=== PATIENT | female | born 1970 | race African-American/Black ===

== ENCOUNTER 2017-08-21 14:29 | Observation (INO) | payer OTHER ==
[2017-08-21] MEDS ORDERED: NITROGLYCERIN 0.4 MG/TAB SL ONE (14:55)
[2017-08-21 15:09] LABS: Absolute Lymphocytes (CBC) 2.7 K/uL (0.7-4.9); Absolute Monocytes 0.5 K/uL (0.1-1.3); Absolute Neutrophil 3.6 K/uL (1.8-8.0); Basophils % 0.5 % (0-1.3); Eosinophils % 1.2 % (0-4.4); Hematocrit 38.8 % (36.0-45.0); Lymphocytes % 39.3 % (15.3-44.8); MCH 33.8 pg (27.0-35.0); MCV 100.3 fL (80-100); MPV 7.9 fL (7.6-11.3); Monocytes % 7.1 % (3.3-12.3); RBC Red Blood Cell Count 3.87 M/uL (3.86-4.86)
[2017-08-21 15:19] LABS: Potassium 3.8 mEq/L (3.6-5.0)
[2017-08-21 15:25] LABS: Bilirubin Direct 0.1 mg/dL (0-0.2); Bilirubin Total 0.4 mg/dL (0.3-1.2); Magnesium 1.9 mg/dL (1.8-2.5); Protein, Total 7.2 g/dL (6.0-8.3); Protime INR 0.99
--- NOTE | 2017-08-21 15:28 | RAD REPORT ---
EXAM DESCRIPTION: RAD - Chest Single View - 08/21/2017 3:13 pm CLINICAL HISTORY: Chest pain. COMPARISON: None. FINDINGS: Portable technique limits examination quality. The lungs are grossly clear. The heart is normal in size. No displaced fractures. IMPRESSION: No acute intrathoracic process suspected.
--- NOTE | 2017-08-21 16:51 | ER ---
Nurse's Notes [facility] Name: Nirmala Ma Age: 47 yrs Sex: Female : 1970 Arrival Date: 08/21/2017 Time: 14:31 Bed 4 Private MD: Diagnosis: Chest pain, unspecified;Hypertensive Emergency Presentation: 08/21 14:27 Presenting complaint: EMS states: pt was driving at work started having chest pain on tw2 the under the left breast that radiated down the left arm, pain 5/10, was having respiratory distress upon arrival, given 1 spray NITRO and 324 ASA, BP prior to nitro was 200/122 and after nitro was 168/116, hx: heart blockage in 2012, pt denies stents. Transition of care: patient was not received from another setting of care. Onset of symptoms was August 21, 2017. Initial Sepsis Screen: Does the patient meet any 2 criteria? No. Patient's initial sepsis screen is negative. Does the patient have a suspected source of infection? No. Patient's initial sepsis screen is negative. Care prior to arrival: Medication(s) given: ASA, 325 mg, Nitroglycerin, x 1. 14:27 Method Of Arrival: EMS: [facility] tw2 14:27 Acuity: LENO 3 tw2 Historical: - Allergies: 14:34 No Known Allergies; tw2 - Home Meds: 14:34 None [Active]; tw2 - PMHx: 14:34 unknown heart block; tw2 - PSHx: 14:34 None; tw2 - Immunization history:: Adult Immunizations up to date. - Social history:: Smoking status: . Screenin:52 Abuse screen: Denies threats or abuse. Nutritional screening: No deficits noted. tw2 Tuberculosis screening: No symptoms or risk factors identified. Fall Risk None identified. Assessment: 14:45 General: Appears in no apparent distress. uncomfortable, Behavior is cooperative, hb agitated. Pain: Complains of pain in chest Pain radiates to back Pain currently is 4 out of 10 on a pain scale. Quality of pain is described as pressure, Pain began suddenly, 2 hours ago. Neuro: Level of Consciousness is awake, alert, obeys commands, Oriented to person, place, time, situation. Cardiovascular: Heart tones S1 S2 present Capillary refill < 3 seconds Patient's skin is warm and dry. Respiratory: Airway is patent Trachea midline Respiratory effort is even, unlabored, Respiratory pattern is regular, symmetrical, Breath sounds are clear bilaterally. GI: No signs and/or symptoms were reported involving the gastrointestinal system. : No signs and/or symptoms were reported regarding the genitourinary system. EENT: No signs and/or symptoms were reported regarding the EENT system. Derm: No signs and/or symptoms reported regarding the dermatologic system. Skin is pink, warm \T\ dry. Musculoskeletal: No signs and/or symptoms reported regarding the musculoskeletal system. 15:30 Reassessment: Patient appears in no apparent distress at this time. Patient and/or hb family updated on plan of care and expected duration. Pain level reassessed. Patient is alert, oriented x 3, equal unlabored respirations, skin warm/dry/pink. 16:03 Reassessment: Pt c/o chest pain 1/10, BP 175/100. JADA Fulton notified, repeat nitro hb administered as ordered. 16:47 Reassessment: Patient appears in no apparent distress at this time. No changes from tw2 previously documented assessment. Patient and/or family updated on plan of care and expected duration. Pain level reassessed. Patient is alert, oriented x 3, equal unlabored respirations, skin warm/dry/pink. 17:25 Reassessment: Attempted to call report to floor, receiving nurse unavailable. hb Vital Signs: 14:33 BP 195 / 107; Pulse 75; Resp 19; Temp 98.7(O); Pulse Ox 100% on R/A; Weight 49.9 kg tw2 (R); Height 5 ft. 7 in. (170.18 cm); Pain 4/10; 15:00 BP 153 / 102; Pulse 68; Resp 17; Pulse Ox 99% on R/A; tw2 15:50 BP 175 / 100; Pulse 62; Resp 18; Pulse Ox 100% on R/A; tw2 16:14 BP 132 / 84; Pulse 60; Resp 20; Pulse Ox 100% on R/A; tw2 16:47 BP 153 / 86; Pulse 64; Resp 18; Pulse Ox 100% on R/A; tw2 14:33 Body Mass Index 17.23 (49.90 kg, 170.18 cm) tw2 ED Course: 14:31 Patient arrived in ED. tw2 14:33 Triage completed. tw2 14:35 Placed in gown. Bed in low position. Call light in reach. Side rails up X2. Cardiac tw2 monitor on. Pulse ox on. NIBP on. Warm blanket given. 14:35 Arm band placed on. tw2 14:36 Donaldo Olivera PA is PHCP. jr8 14:36 Cesario Carreon MD is Attending Physician. jr8 14:59 EKG done, by pharmacy picking technician. reviewed by Donaldo ELIAS. at1 15:13 XRAY Chest (1 view) In Process Unspecified. EDMS 15:51 Lore Gasca, RN is Primary Nurse. hb 16:49 Porsha Reyes MD is Hospitalizing Provider. jr8 Administered Medications: 15:00 Drug: Nitroglycerin 0.4 mg Route: Sublingual; hb 15:58 Drug: Nitroglycerin 0.4 mg Route: Sublingual; hb Outcome: 16:49 Decision to Hospitalize by Provider. jr8 18:19 Patient left the ED. hb Signatures: Dispatcher [employer] EDKS Donaldo Olivera PA PA jr8 Judy mccann, maintenance specialist EKG Tat1 Lore Gasca, RN RN Chiquis Chavez RN RN tw2
--- NOTE | 2017-08-21 16:51 | EDPHYS ---
Physician Documentation [facility] Name: Nirmala Ma Age: 47 yrs Sex: Female : 1970 Arrival Date: 08/21/2017 Time: 14:31 Bed 4 Private MD: ED Physician Cesario Carreon HPI: 08/21 15:32 This 47 yrs old Female presents to ER via EMS with complaints of Chest Pain > 30 y/o. jr8 15:32 The patient or guardian reports chest pain that is located primarily in the anterior jr8 chest wall, left. Onset: acutely, today. The pain radiates to the left arm. Associated signs and symptoms: Pertinent positives: dizziness. The chest pain is described as sharp. Duration: The patient or guardian reports a single episode. Modifying factors: The symptoms are alleviated by nothing. the symptoms are aggravated by nothing. Severity of pain: At its worst the pain was moderate in the emergency department the pain has resolved. The patient has not experienced similar symptoms in the past. The patient has not recently seen a physician. Historical: - Allergies: 14:34 No Known Allergies; tw2 - Home Meds: 14:34 None [Active]; tw2 - PMHx: 14:34 unknown heart block; tw2 - PSHx: 14:34 None; tw2 - Immunization history:: Adult Immunizations up to date. - Social history:: Smoking status: . ROS: 15:32 Eyes: Negative for injury, pain, redness, and discharge, ENT: Negative for injury, jr8 pain, and discharge, Neck: Negative for injury, pain, and swelling, Respiratory: Negative for shortness of breath, cough, wheezing, and pleuritic chest pain, Abdomen/GI: Negative for abdominal pain, nausea, vomiting, diarrhea, and constipation, Back: Negative for injury and pain, MS/Extremity: Negative for injury and deformity, Skin: Negative for injury, rash, and discoloration. 15:32 Cardiovascular: Positive for chest pain, Negative for edema, orthopnea, palpitations, paroxysmal nocturnal dyspnea. 15:32 Neuro: Positive for dizziness, Negative for altered mental status, gait disturbance, headache, hearing loss, loss of consciousness, numbness, seizure activity, speech changes, syncope, near syncope, tingling, tinnitus, tremor, visual changes, weakness. Exam: 15:32 Eyes: Pupils equal round and reactive to light, extra-ocular motions intact. Lids and jr8 lashes normal. Conjunctiva and sclera are non-icteric and not injected. Cornea within normal limits. Periorbital areas with no swelling, redness, or edema. ENT: Nares patent. No nasal discharge, no septal abnormalities noted. Tympanic membranes are normal and external auditory canals are clear. Oropharynx with no redness, swelling, or masses, exudates, or evidence of obstruction, uvula midline. Mucous membranes moist. Neck: Trachea midline, no thyromegaly or masses palpated, and no cervical lymphadenopathy. Supple, full range of motion without nuchal rigidity, or vertebral point tenderness. No Meningismus. Chest/axilla: Normal chest wall appearance and motion. Nontender with no deformity. No lesions are appreciated. Cardiovascular: Regular rate and rhythm with a normal S1 and S2. No gallops, murmurs, or rubs. Normal PMI, no JVD. No pulse deficits. Respiratory: Lungs have equal breath sounds bilaterally, clear to auscultation and percussion. No rales, rhonchi or wheezes noted. No increased work of breathing, no retractions or nasal flaring. Abdomen/GI: Soft, non-tender, with normal bowel sounds. No distension or tympany. No guarding or rebound. No evidence of tenderness throughout. Back: No spinal tenderness. No costovertebral tenderness. Full range of motion. Skin: Warm, dry with normal turgor. Normal color with no rashes, no lesions, and no evidence of cellulitis. MS/ Extremity: Pulses equal, no cyanosis. Neurovascular intact. Full, normal range of motion. Neuro: Awake and alert, GCS 15, oriented to person, place, time, and situation. Cranial nerves II-XII grossly intact. Motor strength 5/5 in all extremities. Sensory grossly intact. Cerebellar exam normal. Normal gait. Vital Signs: 14:33 BP 195 / 107; Pulse 75; Resp 19; Temp 98.7(O); Pulse Ox 100% on R/A; Weight 49.9 kg tw2 (R); Height 5 ft. 7 in. (170.18 cm); Pain 4/10; 15:00 BP 153 / 102; Pulse 68; Resp 17; Pulse Ox 99% on R/A; tw2 15:50 BP 175 / 100; Pulse 62; Resp 18; Pulse Ox 100% on R/A; tw2 16:14 BP 132 / 84; Pulse 60; Resp 20; Pulse Ox 100% on R/A; tw2 16:47 BP 153 / 86; Pulse 64; Resp 18; Pulse Ox 100% on R/A; tw2 14:33 Body Mass Index 17.23 (49.90 kg, 170.18 cm) tw2 MDM: 14:36 Patient medically screened. jr8 16:48 HEART Score: History: Moderately Suspicious (1), ECG: Normal (0), Age: > 45 and < 65 jr8 years (1), Risk Factors: > or = 3 Risk factors for atherosclerotic disease (2), [Hypercholesterolemia] [Hypertension] [Active Smoker] [+ Family HX] Troponin: < or = 1 x Normal Limit (0). The patient was not given aspirin in the Emergency Department. Administered by EMS. Data reviewed: vital signs, nurses notes, lab test result(s), EKG, radiologic studies, plain films, and as a result, I will admit patient. Data interpreted: Pulse oximetry: on room air is 100 %. Interpretation: normal. Counseling: I had a detailed discussion with the patient and/or guardian regarding: the historical points, exam findings, and any diagnostic results supporting the discharge/admit diagnosis, lab results, radiology results, the need for further work-up and treatment in the hospital. Physician consultation: Porsha Reyes MD was called at 16:49, was contacted at 16:49, regarding admission, to the telemetry unit. consult, patient's condition, and will see patient in ED. 08/21 14:36 Order name: Basic Metabolic Panel; Complete Time: 15:08/21 14:36 Order name: BNP; Complete Time: 15:41 08/21 14:36 Order name: CBC with Diff; Complete Time: 15:08/21 14:36 Order name: LFT's; Complete Time: 15:08/21 14:36 Order name: Magnesium; Complete Time: 15:08/21 14:36 Order name: PT-INR; Complete Time: 15:08/21 14:36 Order name: Ptt, Activated; Complete Time: 15:08/21 14:36 Order name: Troponin (emerg Dept Use Only); Complete Time: 15:32 [facility] 08/21 14:36 Order name: XRAY Chest (1 view); Complete Time: 15:29 [facility] 08/21 14:36 Order name: EKG; Complete Time: 14:37 [facility] 08/21 14:36 Order name: Cardiac monitoring; Complete Time: 15:58 [facility] 08/21 17:00 Order name: Heart Healthy [facility] 08/21 17:00 Order name: Urinalysis [facility] 08/21 14:36 Order name: EKG - Nurse/Tech; Complete Time: 15:58 [facility] 08/21 14:36 Order name: IV Saline Lock; Complete Time: 15:58 [facility] 08/21 14:36 Order name: Labs collected and sent; Complete Time: 15:58 [facility] 08/21 14:36 Order name: O2 Per Protocol; Complete Time: 15:59 [facility] 08/21 14:36 Order name: O2 Sat Monitoring; Complete Time: 15:59 jr8 Administered Medications: 15:00 Drug: Nitroglycerin 0.4 mg Route: Sublingual; hb 15:58 Drug: Nitroglycerin 0.4 mg Route: Sublingual; hb Disposition: 19:14 Co-signature as Attending Physician, Cesario Carreon MD I agree with the assessment and tere plan of care. Disposition: 08/21/17 16:49 Hospitalization ordered by Porsha Reyes for Observation. Preliminary diagnosis are Chest pain, unspecified, Hypertensive Emergency . - Bed requested for Telemetry/MedSurg (observation). - Status is Observation. hb - Condition is Stable. - Problem is new. - Symptoms have improved. UTI on Admission? No Signatures: Dispatcher [employer] [facility] Cesario Carreon MD MD cha Roszak, Josh, PA PA jr8 Lore Gasca RN RN Chiquis Chavez RN RN 2 Lucina Turner 2
[2017-08-21] MEDS ORDERED: ACETAMINOPHEN 500 MG TAB PO PRN (16:58)
--- NOTE | 2017-08-21 17:00 | EKG ---
Test Date: 2017-08-21 Test Time: 14:43:46 Line Production Cook: RIKA MEASUREMENT RESULTS: Intervals: Rate: 60 MA: 144 QRSD: 82 QT: 408 QTc: 408 [place]: P: 61 MA: 144 QRS: 46 T: 57 INTERPRETIVE STATEMENTS: Normal sinus rhythm Normal ECG No previous ECG available for comparison Electronically Signed On 08-21-17 16:59:46 CDT by Arvin Rodgers
--- NOTE | 2017-08-21 17:53 | P.HP ---
Certification for Inpatient Patient admitted to: Observation With expected LOS: <2 Midnights Patient will require the following post-hospital care: None Practitioner: I am a practitioner with admitting privileges, knowledge of patient current condition, hospital course, and medical plan of care. Services: Services provided to patient in accordance with Admission requirements found in Title 42 Section 412.3 of the Code of Federal Regulations Patient History Date of Service: 08/21/17 Primary Care Provider: OOT Reason for admission: Chest Pain History of Present Illness: This is a 47-year-old female with significant past medical history of high blood pressure presented to the ED complaining of having some chest tightness and pain that started about 2 o'clock this morning progressively got worse and was radiating down her left arm and thus district decided to come to the ER. Patient stated that in the past she has had a stress test and was told she has a heart blockage however she did not have a heart catheterization done at that time. Patient is positive for smoking and has been smoking for over 20 years. Occasional alcohol and no drugs. Patient stated that her pain was on the left side and was more pressure like no other associated symptoms with it. Denies having any nausea vomiting shortness of breath. In the ED patient had an EKG done which was within normal limits. Troponin x2 was negative. BP was elevated on Admission and ASA and nitro helped with the pain and BP. Given the history of the patient and no outpatient followup patient was referred over for admission for ACS rule out Review of Systems General: As per HPI Physical Examination - Physical Exam General: Alert, In no apparent distress, Oriented x3 HEENT: Atraumatic, PERRLA, Mucous membr. moist/pink, EOMI, Sclerae nonicteric Neck: Supple, 2+ carotid pulse no bruit, No LAD, Without JVD or thyroid abnormality Respiratory: Clear to auscultation bilaterally, Normal air movement Cardiovascular: Regular rate/rhythm, Normal S1 S2 Gastrointestinal: Normal bowel sounds, No tenderness Musculoskeletal: No tenderness Integumentary: No rashes Neurological: Normal gait, Normal speech, Normal strength at 5/5 x4 extr, Normal tone, Normal affect Lymphatics: No axilla or inguinal lymphadenopathy - Studies Laboratory Data (last 24 hrs) 08/21/17 14:58: PT 11.7, INR 0.99, APTT 31.2 08/21/17 14:58: WBC 7.0, Hgb 13.1, Hct 38.8, Plt Count 235 08/21/17 14:58: B-Natriuretic Peptide 10 08/21/17 14:58: Sodium 139, Potassium 3.8, BUN 11, Creatinine 0.86, Glucose 91, Magnesium 1.9, Total Bilirubin 0.4, AST 21, ALT 15, Alkaline Phosphatase 42 Assessment and Plan - Problems (Diagnosis) (1) Chest pain Current Visit: Yes Status: Acute Plan: Chest pain with Elevated BP -EKG and troponin negative -+ for smoking and h/o ? + stress test -ASA, BB and lipitor -ECHO and stress test ordered for AM Qualifiers: Chest pain type: other chest pain Qualified Code(s): R07.89 - Other chest pain; R07.8 - Other chest pain (2) HTN (hypertension) Current Visit: Yes Status: Acute Plan: Currently started on BB Qualifiers: Hypertension type: essential hypertension Qualified Code(s): I10 - Essential (primary) hypertension Discharge Plan: Home Plan to discharge in: 24 Hours - Advance Directives Does patient have a Living Will: No Does patient have a Durable POA for Healthcare: No - Code Status/Comfort Care Code Status Assessed: Yes Critical Care: No
[2017-08-21 18:25] VITALS: O2SAT 100
[2017-08-21 20:41] VITALS: BMI 20.4
[2017-08-21] MEDS ORDERED: ATORVASTATIN 40 MG TAB PO SCH (21:00)
[2017-08-22] MEDS ORDERED: METOPROLOL TAR 25 MG TAB PO SCH (06:00)
[2017-08-22 06:03] LABS: Urine Appearance CLEAR; Urine Bilirubin NEGATIVE (NEG); Urine Blood 2+ (NEG); Urine Color YELLOW; Urine Glucose NEGATIVE (NEG); Urine Protein NEGATIVE (NEG); Urine pH 6.5 (5.0-7.0)
[2017-08-22 06:08] LABS: Urine Microscopic Reflex ORDER UMIC
[2017-08-22 06:37] LABS: Absolute Lymphocytes (CBC) 2.5 K/uL (0.7-4.9); Absolute Monocytes 0.5 K/uL (0.1-1.3); Basophils % 0.5 % (0-1.3); Eosinophils % 1.7 % (0-4.4); Hematocrit 40.8 % (36.0-45.0); Lymphocytes % 40.5 % (15.3-44.8); MCH 34.1 pg (27.0-35.0); MCV 101.2 fL (80-100); MPV 8.6 fL (7.6-11.3); Monocytes % 7.8 % (3.3-12.3); RBC Red Blood Cell Count 4.04 M/uL (3.86-4.86)
[2017-08-22 06:45] LABS: ALT/SGPT 14 IU/L (10-60); AST/SGOT 22 IU/L (10-42); Albumin 3.8 g/dL (3.2-5.5); Alkaline Phosphatase 41 IU/L (42-121); BUN Blood Urea Nitrogen 12 mg/dL (6-20); Bicarbonate 25 mEq/L (21-31); Bilirubin Total 0.7 mg/dL (0.3-1.2); Glucose Level 88 mg/dL (65-120); HDL Cholesterol 78 mg/dL (29-89); LDL Cholesterol, Calculated 113 (<130); Potassium 4.4 mEq/L (3.6-5.0); Protein, Total 6.5 g/dL (6.0-8.3); Sodium Level 138 mEq/L (135-145)
[2017-08-22 06:56] LABS: Urine Culture Reflex Order NOT NEEDED
[2017-08-22 06:58] LABS: Urine Bacteria <20 /HPF (<20)
[2017-08-22 08:44] VITALS: BP 141/93; TEMP 98.5
[2017-08-22] MEDS ORDERED: ASPIRIN EC 81 MG TAB PO SCH (09:00)
--- NOTE | 2017-08-22 11:16 | TREADMILL ---
70% H.R.: 121 85% H.R.: 147 90% H.R.: 156 100% H.R.: 173 DX: CHEST PAIN Date of Study: 08/22/2017 Ht: 5' 7 " Wt: 130 lb 8 oz Consulting Physician: FRAN MEDICATIONS: TYLENOL, ASPIRIN, LIPITOR, LOPRESSOR HISTORY: 47 YEAR OLD FEMALE WITH COMPLAINTS OF CHEST PAIN. SMOKES HALF PACK A DAY. PHYSICIAL EXAMINATION: RESTING B.P.: 157/91 RESTING H.R.: 57 RESTING EKG: NORMAL PROTOCOL: LIZA ROUTINE EXERCISE TIME: 10:17 MAXIMUM HEART RATE: 171 % OF PREDICTED B.P. AT PEAK STRESS: 174/82 H.R. AT 1 MINUTE POST EXERCISE: 113 IMPRESSION: ROUTINE LIZA STOPPED DUE TO FATIUGE AND TARGET HEART RATE REACHED. NO CHEST PAIN. NO VENTRICULAR TACHYCARDIA. NO SUPRAVENTRICULAR TACHYCARDIA. NO ST DEPRESSION. NORMAL STRESS TEST.
--- NOTE | 2017-08-22 11:43 | P.SSS ---
Patient History Date of Service: 08/22/17 Primary Care Provider: PHONG Reason for admission: Chest Pain History of Present Illness: This is a 47-year-old female with significant past medical history of high blood pressure presented to the ED complaining of having some chest tightness and pain that started about 2 o'clock this morning progressively got worse and was radiating down her left arm and thus district decided to come to the ER. Patient stated that in the past she has had a stress test and was told she has a heart blockage however she did not have a heart catheterization done at that time. Patient is positive for smoking and has been smoking for over 20 years. Occasional alcohol and no drugs. Patient stated that her pain was on the left side and was more pressure like no other associated symptoms with it. Denies having any nausea vomiting shortness of breath. In the ED patient had an EKG done which was within normal limits. Troponin x2 was negative. BP was elevated on Admission and ASA and nitro helped with the pain and BP. Given the history of the patient and no outpatient followup patient was referred over for admission for ACS rule out Allergies No Known Allergies Allergy (Unverified 08/21/17 18:23) Home Medications: Atorvastatin Calcium [Lipitor] 40 mg PO BEDTIME #30 tab 08/22/17 Lisinopril 10 mg PO DAILY #30 tablet 08/22/17 - Past Medical/Surgical History Has patient received pneumonia vaccine in the past: No Diabetic: No -: unknown heart block - Family History Father -: Heart disease, Hypertension Mother -: Cancer Sister -: Hypertension - Social History Smoking Status: Current every day smoker Alcohol use: Yes CD- Drugs: No Caffeine use: No Place of Residence: Home Review of Systems 10-point ROS is otherwise unremarkable Physical Examination - Vital Signs Temperature: 98.5 F Blood Pressure: 141/93 Pulse: 47 Respirations: 16 Pulse Ox (%): 100 - Physical Exam General: Alert, In no apparent distress, Oriented x3 HEENT: Atraumatic, PERRLA, Mucous membr. moist/pink, EOMI, Sclerae nonicteric Neck: Supple, 2+ carotid pulse no bruit, No LAD, Without JVD or thyroid abnormality Respiratory: Clear to auscultation bilaterally, Normal air movement Cardiovascular: Regular rate/rhythm, Normal S1 S2 Gastrointestinal: Normal bowel sounds, No tenderness Musculoskeletal: No tenderness Integumentary: No rashes Neurological: Normal gait, Normal speech, Normal strength at 5/5 x4 extr, Normal tone, Normal affect Lymphatics: No axilla or inguinal lymphadenopathy - Studies Laboratory Data (last 24 hrs) 08/21/17 14:58: PT 11.7, INR 0.99, APTT 31.2 08/21/17 14:58: WBC 7.0, Hgb 13.1, Hct 38.8, Plt Count 235 08/21/17 14:58: B-Natriuretic Peptide 10 08/21/17 14:58: Sodium 139, Potassium 3.8, BUN 11, Creatinine 0.86, Glucose 91, Magnesium 1.9, Total Bilirubin 0.4, AST 21, ALT 15, Alkaline Phosphatase 42 - Diagnosis (Problem(s)) (1) Chest pain Current Visit: Yes Status: Acute Plan: Stress test and ECHO WNL. -DC with Lipitor and lisinopril for Hyperlipidemia and HTN -NO BB due to Bradycardia Qualifiers: Chest pain type: other chest pain Qualified Code(s): R07.89 - Other chest pain; R07.8 - Other chest pain (2) HTN (hypertension) Current Visit: Yes Status: Acute Qualifiers: Hypertension type: essential hypertension Qualified Code(s): I10 - Essential (primary) hypertension - Disposition Disposition: ROUTINE DISCHARGE Condition: GOOD Patient Discharge Instructions: please f/u with PCP and Cardiology in 2 week post discharge. New medication. Lipitor 40mg dailys. Lisinopril 10mg daily. No smoking. Your Stress test and ECHO were WNL. Diet: Regular Activity: Ad atilio
--- NOTE | 2017-08-22 12:25 | ECHO ---
HEIGHT: 5 ft 7 in WEIGHT: 130 lb 8 oz DATE OF STUDY: 08/22/[address]: Porsha Reyes MD 2-DIMENSIONAL: YES M.MODE: YES DOPPLER: YES COLOR FLOW: YES TDS: NO PORTABLE: NO DEFINITY: NO BUBBLE STUDY: YES DIAGNOSIS: CHEST PAIN CARDIAC HISTORY: CATHERIZATION: NO SURGERY: NO PROSTHETIC VALVE: NO PACEMAKER: NO MEASUREMENTS (cm) DIASTOLIC (NORMALS) SYSTOLIC (NORMALS) IVSd 1.0 (0.6-1.2) LA Diam 2.4 (1.9-4.0) LVEF 62% LVIDd 3.6 (3.5-5.7) LVIDs 2.4 (2.0-3.5) %FS 33% LVPWd 0.9 (0.6-1.2) Ao Diam 2.5 (2.0-3.7) 2 DIMENSIONAL ASSESSMENT: RIGHT ATRIUM: NORMAL LEFT ATRIUM: NORMAL RIGHT VENTRICLE: NORMAL LEFT VENTRICLE: NORMAL TRICUSPID VALVE: NORMAL MITRAL VALVE: NORMAL PULMONIC VALVE: NORMAL AORTIC VALVE: NORMAL PERICARDIAL EFFUSION: NONE AORTIC ROOT: NORMAL LEFT VENTRICULAR WALL MOTION: NORMAL DOPPLER/COLOR FLOW: NORMAL COMMENTS: NORMAL 2D ECHOCARDIOGRAM WITH DOPPLER. NORMAL SALINE CONTRAST STUDY. NO RIGHT TO LEFT SHUNT. TECHNOLOGIST: Julio HERMOSILLO
== END 2017-08-22 12:29 | disposition home or self-care (01) ==
LOC: ER 14:29 → ERHOLD 16:58 → 4TH 18:13
PROVIDERS: ADMIT Family Medicine; ATTEND Family Medicine
DX: R07.9 Chest pain, unspecified (principal); I10 Essential (primary) hypertension; E78.5 Hyperlipidemia, unspecified; F17.210 Nicotine dependence, cigarettes, uncomplicated
CPT/HCPCS: 36415; 71045; 80048; 80053; 80061; 80076; 81003; 81015; 83735; 83880; 84484; 85025; 85610; 85730; 87086; 87088; 93005; 93017; 93306; 99284; G0378